=== PATIENT | female | born 1985 | race Caucasian/White ===

== ENCOUNTER 2017-02-21 19:36 | Emergency (ER) | payer MEDICAID, OTHER ==
[~2017-02-21] VITALS: Ht 152.4 cm; Wt 49.5 kg
[~2017-02-21 19:36] MED LIST: ONDAN8ODT BU; PREN-20 PO
[2017-02-21 19:48] VITALS: BP 102/66; PULSE 85; RESP 16; O2SAT 100
--- NOTE | 2017-02-21 20:31 | ED.REPORT ---
HPI-General Illness Date of Service Feb 21, 2017 ED Provider: Neville Chamberlain DO Pt is a 3 month 31 year old female who presents to the ED complaining of throat pain onset 2 days ago. She c/o associated headache, cough, and odynophagia. The pt also reports dull abdominal pain. She denies vaginal bleeding. Per pt, she presented to an ED via EMS for her symptoms including LOC, fever, diarrhea, and vomiting. She was discharged with diagnosis of gastroenteritis. She had a negative US and lab results. The pt is requesting a chlamydia test as she is still experience abdominal pain. She reports that she has not seen an OBGYN. Per pt, she has taken medication for her symptoms for 1 week, but she was not sure what it was. Nursing Notes Stated Complaint: FLU LIKE SYMPTOMS Chief Complaint: Female Abdominal Pain Nursing Notes Reviewed: Yes Allergies: Coded Allergies: quetiapine (Verified Adverse Reaction, Severe, FATIGUE, 03/08/14) Scheduled Ondansetron (Ondansetron) 8 Mg Tab.rapdis 8 MG BU Q 4HRS PRN DISSOLVE IN MOUTH OR UNDER TONGUE Pnv With Ca,No.71/Iron/Fa-Expunged Drug, Do N (-Expunged Drug, Do Not Renew!) 1 Each Tablet 1 EACH PO DAILY General Time Seen by MD: 20:31 Chief Complaint Other (throat pain) Hx Obtained From: Patient Arrived By: Walk-in Sudden in Onset?: No Onset Occurred: 2 days ago Symptom Duration: Since onset Quality: Painful Radiation: : Does not radiate Severity: Current: Moderate Severity: Maximum: Moderate Recent Healthcare: Recent doctor visit Similar Sx Previous: No Past Medical History Past Medical History Chronic ear infections PTSD Anxiety Reports: Asthma Reports: Urinary tract infection Past Surgical History Right knee scope x2 Reports: , Tonsillectomy Smoking History Former Smoker Social History Alcohol Use: Denies alcohol use Drug Use: Denies drug use, THC Occupation lives with friend and his daughter 5 year old Ambulatory Status Independent Review of Systems + odynophagia Full Review of Systems Constitutional: Denies: Fever Ears / Nose / Throat: Reports: Throat pain Respiratory: Reports: Non-productive cough, Denies: Shortness of breath GI: Reports: Abdominal pain Neurologic: Reports: Headache Complete sys rev & neg: except as marked. Physical Exam Vital Signs Vital Signs Date Time Temp Pulse Resp B/P Pulse Ox O2 Delivery O2 Flow Rate FiO2 02/22/17 00:48 37.1 85 20 113/53 95 Room Air 02/21/17 23:00 37.0 79 20 95/46 99 Room Air 02/21/17 19:48 36.8 85 16 102/66 100 Room Air Initial VS: Reviewed Head / Eyes: Atraumatic, Normocephalic Neck: Supple, Full range of motion Respiratory: Breath sounds normal, Clear to auscultation, No respiratory distress Cardiovascular: Regular rate & rhythm, Heart sounds normal, Intact distal pulses Abdomen / GI: Soft, Non-tender Extremities: Vascular intact, Neuro intact Skin: Warm, Dry, No cyanosis Neurologic: Alert, Oriented, Nonfocal Psychiatric: Mood/affect normal, Behavior normal General/Constitutional: Awake, Alert ENT: Airway patent Erythema to posterior oropharynx with pethecia of the soft palate and uvula. Interpretation & Diagnostics US ABDOMEN - LIMITED: Conclusion: Gallstones Transmitted to the ED at 01:22 by Rosanna Omer M.D. Lab Results Interpretation Result Diagram: 02/21/17 2100 02/21/17 2100 Test 02/21/17 21:00 02/21/17 21:02 02/21/17 21:07 White Blood Count 11.0th/mm3 (3.8-10.1) Red Blood Count 3.73mil/mm3 (3.90-5.20) Hemoglobin 11.5g/dL (12.0-15.6) Hematocrit 33.0% (35.0-46.0) Mean Corpuscular Volume 88.5fL (81-100) Mean Corpuscular Hemoglobin 30.8pg (27.0-35.0) Mean Corpuscular Hemoglobin Concent 34.8% (32.0-37.0) Red Cell Distribution Width 12.7% (12.3-15.4) Platelet Count 271bil/L (150-400) Neutrophils (%) (Auto) 66.9% (40-74) Lymphocytes (%) (Auto) 26.2% (14-46) Monocytes (%) (Auto) 5.8% (4-12) Eosinophils (%) (Auto) 0.9% (0-5) Basophils (%) (Auto) 0.1% (0-3) Sodium Level 139mEq/L (134-144) Potassium Level 3.6mEq/L (3.5-5.2) Chloride Level 102mEq/L (97-108) Carbon Dioxide Level 22mmol/L (18-29) Blood Urea Nitrogen 20mg/dL (6-20) Creatinine 0.57mg/dL (0.57-1.00) Estimat Glomerular Filtration Rate 177mL/min (>59) Glucose Level 107mg/dL (60-99) Calcium Level 9.0mg/dL (8.5-10.1) Magnesium Level 1.9mg/dL (1.6-2.6) Total Bilirubin 0.2mg/dL (0.0-1.2) Aspartate Amino Transf (AST/SGOT) 16U/L (0-50) Alanine Aminotransferase (ALT/SGPT) 13U/L (0-32) Alkaline Phosphatase 46U/L (25-150) Total Protein 6.5g/dL (6.4-8.4) Albumin 3.9g/dL (3.4-5.0) Lipase 23U/L (13-60) Hold [place] Top Tube Received (Received) Hold Urine Received (Received) Urine Color Yellow (YELLOW) Urine Appearance Clear (CLEAR,HAZY) Urine pH 6.5 (5.0-8.0) Urine Specific M[place]amey 1.015 (1.003-1.035) Urine Protein Negativemg/dL (NEG,TRACE) Urine Glucose (UA) Negativemg/dL (NEGATIVE) Urine Ketones Negativemg/dL (NEGATIVE) Urine Occult Blood Negative (NEGATIVE) Urine Nitrite Negative (NEGATIVE) Urine Bilirubin Negative (NEGATIVE) Urine Urobilinogen Normalmg/dL (NORMAL) Urine Leukocyte Esterase Negative (NEGATIVE) Urine RBC 0-2/hpf (0-2) Urine WBC 0-5/hpf (0-5) Urine Epithelial Cells None/hpf (NONE-MOD) Urine Crystals None seen (NONE SEEN) Urine Bacteria Few/hpf (NONE-FEW) Urine Hyaline Casts None/lpf (NONE) Urine Granular Casts None seen (NONE SEEN) Urine Waxy Casts None seen (NONE SEEN) Urine Red Blood Cell Casts None seen (NONE SEEN) Urine White Blood Cell Casts None seen (NONE SEEN) Urine Mucus None seen (None Seen) Urine Trichomonas None seen (NONE SEEN) Urine Yeast None (NONE SEEN) Urinalysis Comment None Urine Culture Reflexed Not indicated Re-Eval/Medical Decision Med Decision/Clinical Course Patient was essentially pain free on presentation and at discharge. No appreciable tenderness. Laboratory work reassuring. Ultrasound reassuring. No evidence of any acute abnormality. We will send off the GEN probe. Patient slept for several hours. She has been on a long road trip from [place] F think it prudent that she finishes a course of amoxicillin and has close outpatient follow-up. Appendicitis seems very unlikely taking, but she has no tenderness in her abdomen whatsoever. The ultrasound did demonstrate gallstones but no evidence of cholecystitis. She has no upper abdominal pain. This too can follow-up with on the outpatient basis. Source of Hx: Old records Time of Eval: 00:27 Re-Evaluation/Progress Note: Pt rechecked. Informed pt of plan for discharge. Pt understands and agrees with plan for discharge. F/U instructions and RTER warnings given. All questions addressed. Counseled Regarding: Diagnosis, Lab results, Need for follow-up, When/why to return to ED Discharge & Departure Primary Impression: Pharyngitis Pharyngitis/tonsillitis etiology: unspecified etiology Qualified Code: J02.9 - Acute pharyngitis, unspecified Additional Impression: Abdominal pain during Trimester: unspecified trimester Qualified Code: O26.899 - Other specified related conditions, unspecified trimester Disposition: Home Discharge Condition All VS Reviewed: Yes Condition: Stable Patient Instructions: Abdominal Pain in (ED), Pharyngitis (ED) Additional Instructions: Your ultrasound is reassuring and your urine is not infected. Your urine was sent our for clindamycin testing and will be available in 72 hours. Call the referral waste disposal leakage tester on Wednesday for a follow up appointment next week. Finish the Amoxicillin. You may take over the counter acetaminophen for the pain. Return to the Emergency Department for any new or worrisome symptoms. Referrals: Melissa Munoz CNM (PCP) Toshia Sylvester MD Attestation Portions of this note were transcribed by Annabel Hernandez. I, Dr. Chamberlain personally performed the history, physical exam and medical decision-making; I reviewed and confirmed the accuracy of the information in the transcribed note. Signed by : Kimmy Joseph, 02/21/17. copies to: Melissa Munoz CNM; Toshia Sylvester MD, Todd P DO Feb 21, 2017 20:31 Annabel Faye Feb 21, 2017 21:02
[2017-02-21 21:04] LABS: BASOPHILS % (AUTO) 0.1 % (0-3); EOSINOPHILS % (AUTO) 0.9 % (0-5); MONOCYTES % (AUTO) 5.8 % (4-12); Mean Corpuscular Hemoglobin 30.8 pg (27.0-35.0); Mean Corpuscular Volume 88.5 fL (81-100); NEUTROPHILS % (AUTO) 66.9 % (40-74); Platelet Count 271 bil/L (150-400)
[2017-02-21] MEDS ORDERED: 0.9% Sodium Chloride 1,000 ML IV ONE (21:05)
[2017-02-21] MEDS ORDERED: Dexamethasone Inj 10 MG in 0.9% Sodium Chloride-Pha MIX 50 ML IV ONE (21:05)
[2017-02-21 21:17] LABS: APPEARANCE,URINE CLEAR (CLEAR,HAZY); COLOR,URINE YELLOW (YELLOW); OCCULT BLOOD,URINE NEGATIVE (NEGATIVE); PH,URINE 6.5 (5.0-8.0); UROBILINOGEN,URINE NORMAL (NORMAL)
[2017-02-21 21:24] LABS: Magnesium 1.9 mg/dL (1.6-2.6)
[2017-02-21 23:00] VITALS: BP 95/46; PULSE 79; RESP 20; O2SAT 99
[2017-02-22 00:48] VITALS: BP 113/53; PULSE 85; RESP 20; O2SAT 95
--- NOTE | 2017-02-22 09:31 | DRSVH ---
PROCEDURE: US ABDOMEN, LIMITED ([id number]) INDICATIONS: rlq pain TECHNIQUE: Real-time focused scanning was performed of the right upper quadrant, with image documentation. COMPARISON: None. FINDINGS: The liver is normal in size and homogeneous in echotexture. There are small gallstones in the gallbladder. No gallbladder wall thickening or pericholecystic flu id. The common bile duct is normal in caliber measuring up to 4 mm. IMPRESSION: 1. Limited study demonstrates cholelithiasis without definite evidence of cholecystitis. Dictated by: Santhosh Ceja M.D. on 02/22/2017 at 9:26 Approved by: Santhosh Ceja M.D. on 02/22/2017 at 9:29
== END 2017-02-22 00:49 | disposition home or self-care (01) ==
LOC: SED 19:36
DX: O99.511 Diseases of the respiratory system complicating pregnancy, first trimester (principal); J02.9 Acute pharyngitis, unspecified; R10.9 Unspecified abdominal pain; Z3A.12 12 weeks gestation of pregnancy; J45.909 Unspecified asthma, uncomplicated; F41.9 Anxiety disorder, unspecified; Z87.440 Personal history of urinary (tract) infections; Z87.891 Personal history of nicotine dependence; Z88.8 Allergy status to other drugs, medicaments and biological substances
CPT/HCPCS: 36415; 76705; 80053; 81000; 81025; 83690; 83735; 85025; 87491; 87591; 96361; 96374; 99285; J1100; J7030